=== PATIENT | female | born 1945 | race Caucasian/White ===

== ENCOUNTER 2023-12-03 20:27 | Inpatient (IN) | payer MEDICARE, OTHER ==
[~2023-12-03] VITALS: Ht 160 cm; Wt 61.2 kg
[2023-12-03 20:50] VITALS: BP 124/54; TEMP 97.8; O2SAT 100
[2023-12-03] MEDS ORDERED: ZOLPIDEM 5 MG TABLET PO PRN (22:30)
[2023-12-03] MEDS ORDERED: MAG HYDROX/AL HYDROX/SIMETH 30 ML LIQUID UDC PO PRN (22:30)
[2023-12-03] MEDS ORDERED: MAGNESIUM HYDROXIDE 30 ML LIQUID UDC PO PRN (22:30)
[2023-12-03] MEDS ORDERED: LORAZEPAM 1 MG TABLET PO PRN (22:30)
[2023-12-03] MEDS ORDERED: BISA10SU61 RC (22:59)
[2023-12-03] MEDS ORDERED: DOCU240C26 PO (22:59)
[2023-12-03] MEDS ORDERED: LEVE500T9 PO (22:59)
[2023-12-03] MEDS ORDERED: POLY15DR17 EACHEYE (22:59)
[2023-12-04 08:45] VITALS: BP 115/49; TEMP 98; O2SAT 96
[2023-12-04] MEDS ORDERED: BISACODYL 10 MG SUPP.RECT RC PRN (10:45)
[2023-12-04] MEDS: ESCITALOPRAM OXALATE 10 MG TABLET PO SCH (12:29)
[2023-12-04] MEDS: levETIRAcetam 500 MG TABLET PO SCH (12:42)
[2023-12-04] MEDS: DOCUSATE SODIUM 250 MG CAPSULE PO SCH (12:42)
[2023-12-04 15:16] VITALS: BP 100/48; TEMP 97.4; O2SAT 98
[2023-12-04 16:46] LABS: EOSINOPHILS # (AUTO) 0.1 K/uL (0.0-0.7); EOSINOPHILS % (AUTO) 2.9 % (0.0-7.0); HEMATOCRIT 40.4 % (31.2-41.9); HEMOGLOBIN 13.4 g/dL (10.9-14.3); LYMPHOCYTES # (AUTO) 1.2 K/uL (0.8-4.8); LYMPHOCYTES % (AUTO) 26.7 % (20.5-51.5); MEAN CORPUSCULAR HEMOGLOBIN 31.7 uug (24.7-32.8); MEAN CORPUSCULAR HGB CONC 33 g/dL (32.3-35.6); MEAN CORPUSCULAR VOLUME 95.5 fL (75.5-95.3); MONOCYTES # (AUTO) 0.4 K/uL (0.1-1.30); MONOCYTES % (AUTO) 9.2 % (0.0-11.0); NEUTROPHILS # (AUTO) 2.6 K/uL (1.8-8.9); NEUTROPHILS % (AUTO) 60.2 % (38.5-71.5); PLATELET COUNT (AUTO) 173 K/uL (179-408); RED BLOOD CELL COUNT(AUTO) 4.23 MIL/uL (3.63-4.92); RED CELL DISTRIBUTION WIDTH 13.8 % (12.3-17.7); WHITE BLOOD COUNT (AUTO) 4.4 K/uL (3.8-11.8)
[2023-12-04 17:07] LABS: DIFFERENTIAL COMMENT 1
[2023-12-04 17:14] LABS: ALBUMIN 2.8 g/dL (3.4-5.0); BILIRUBIN,TOTAL 0.3 mg/dL (0.2-1.0); CALCIUM 8.6 mg/dL (8.5-10.1); CREATININE 0.7 mg/dL (0.6-1.3); POTASSIUM 4.2 mmol/L (3.5-5.1); TOTAL PROTEIN, SERUM 5.7 g/dL (6.4-8.2)
[2023-12-04 17:34] LABS: *BILIRUBIN,URIN NEGATIVE (NEGATIVE); *BLOOD, URINE NEGATIVE (NEGATIVE); *CLARITY,URINE CLOUDY (CLEAR); *COLOR,URINE YELLOW (YELLOW); *KETONES,URINE TRACE (NEGATIVE); *PROTEIN,URINE 2+ (NEGATIVE); *UROBILINOGEN,URINE 0.2 E.U./dl (NORMAL); LEUKOCYTE ESTERASE ,URINE TRACE (NEGATIVE); NITRITE, URINE NEGATIVE (NEGATIVE); UGLUCOSE NEGATIVE (NEGATIVE)
[2023-12-04 17:42] LABS: THYROID STIMULATING HORMONE 2.867 mIU/mL (0.358-3.740)
[2023-12-04 18:01] LABS: RBC,URINE NONE SEEN /HPF (0-3)
[2023-12-04 18:14] LABS: BACTERIA,URINE MANY /HPF (NONE SEEN); SQUAMOUS EPITHELIAL CELL,UR MODERATE /HPF (NONE SEEN)
[2023-12-04 20:36] VITALS: BP 116/51; TEMP 98.1; O2SAT 96
[2023-12-04] MEDS: ATORVASTATIN 40 MG TABLET PO SCH (20:36)
[2023-12-05 08:03] VITALS: BP 112/41; TEMP 97.6; O2SAT 99
[2023-12-05] MEDS: DOCUSATE SODIUM 250 MG CAPSULE PO SCH (08:24)
[2023-12-05] MEDS: levETIRAcetam 500 MG TABLET PO SCH (08:24)
[2023-12-05] MEDS: ACETAMINOPHEN 325 MG TABLET PO PRN ×2 (08:24→20:48)
[2023-12-05] MEDS: ESCITALOPRAM OXALATE 10 MG TABLET PO SCH (09:00)
[2023-12-05] MEDS ORDERED: levETIRAcetam 500 MG TABLET PO SCH (12:28)
[2023-12-05 16:20] VITALS: BP 105/46; TEMP 97.9; O2SAT 98
[2023-12-05] MEDS: ATORVASTATIN 40 MG TABLET PO SCH (20:48)
[2023-12-05 22:00] VITALS: BP 110/66; TEMP 98; O2SAT 96
[2023-12-06] MEDS: DOCUSATE SODIUM 250 MG CAPSULE PO SCH (08:09)
[2023-12-06] MEDS: levETIRAcetam 500 MG TABLET PO SCH (08:09)
[2023-12-06] MEDS: ESCITALOPRAM OXALATE 10 MG TABLET PO SCH (08:09)
[2023-12-06 08:28] VITALS: BP 123/53; TEMP 98.7; O2SAT 98
[2023-12-06 16:49] VITALS: BP 125/51; TEMP 98; O2SAT 98
[2023-12-06] MEDS: NITROFURANTOIN/NITROFURAN MAC 100 MG CAPSULE PO SCH ×2 (17:33→21:17)
[2023-12-06 20:00] VITALS: BP 130/60; TEMP 97.9; O2SAT 97
[2023-12-06] MEDS: ATORVASTATIN 40 MG TABLET PO SCH (21:17)
[2023-12-07 07:52] VITALS: BP 104/67; TEMP 98.4; O2SAT 98
[2023-12-07] MEDS: NITROFURANTOIN/NITROFURAN MAC 100 MG CAPSULE PO SCH ×2 (08:43→20:34)
[2023-12-07] MEDS: levETIRAcetam 500 MG TABLET PO SCH (08:43)
[2023-12-07] MEDS: DOCUSATE SODIUM 250 MG CAPSULE PO SCH (08:43)
[2023-12-07] MEDS: ESCITALOPRAM OXALATE 10 MG TABLET PO SCH (08:52)
[2023-12-07 16:14] VITALS: BP 122/51; TEMP 98.1; O2SAT 98
[2023-12-07 20:17] VITALS: BP 112/56; TEMP 98.1; O2SAT 96
[2023-12-07] MEDS: ATORVASTATIN 40 MG TABLET PO SCH (20:35)
[2023-12-08 08:00] VITALS: BP 130/85; TEMP 97.8; O2SAT 97
[2023-12-08] MEDS ORDERED: GLUCERNA SHAKE 237 ML CAN PO SCH (09:00)
[2023-12-08] MEDS: ESCITALOPRAM OXALATE 10 MG TABLET PO SCH (09:42)
[2023-12-08] MEDS: DOCUSATE SODIUM 250 MG CAPSULE PO SCH (09:42)
[2023-12-08] MEDS: NITROFURANTOIN/NITROFURAN MAC 100 MG CAPSULE PO SCH (09:42)
[2023-12-08] MEDS: levETIRAcetam 500 MG TABLET PO SCH (09:42)
== END 2023-12-08 15:45 | DRG 881 ==
LOC: GPS 20:36
PROVIDERS: ADMIT Psychiatry & Neurology Psychiatry; ATTEND Nurse Practitioner Acute Care
DX: F32.A Depression, unspecified (principal); I69.354 Hemiplegia and hemiparesis following cerebral infarction affecting left non-dominant side; F06.31 Mood disorder due to known physiological condition with depressive features; N39.0 Urinary tract infection, site not specified; I69.398 Other sequelae of cerebral infarction; G93.89 Other specified disorders of brain; G40.909 Epilepsy, unspecified, not intractable, without status epilepticus; Z86.718 Personal history of other venous thrombosis and embolism; B96.89 Other specified bacterial agents as the cause of diseases classified elsewhere; F41.9 Anxiety disorder, unspecified; Z85.841 Personal history of malignant neoplasm of brain; Z79.899 Other long term (current) drug therapy; R53.1 Weakness; Z58.89 Other problems related to physical environment
CPT/HCPCS: 36415; 70450; 82747; 83921; 84443; 85014; 85025